=== PATIENT | female | born 1975 | race Caucasian/White ===

== ENCOUNTER 2018-01-02 18:36 | Emergency (ER) | payer BC ==
[~2018-01-02] VITALS: Ht 152.4 cm; Wt 75.3 kg
[~2018-01-02 18:36] MED LIST: BACT800T5 PO; CEPH500T PO; HYDR-3534 PO; XANA0.5T PO; Z.0.NO CURRENT MEDS
[2018-01-02 18:58] VITALS: BP 163/87; PULSE 100; RESP 18; TEMP 98.4; O2SAT 95
[2018-01-02] MEDS ORDERED: HYDR-3366 PO (19:29)
[2018-01-02] MEDS ORDERED: ALPR.5 PO (19:29)
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
[2018-01-02] MEDS ORDERED: DICL75TA PO (20:11)
--- NOTE | 2018-01-02 20:13 | RADRPT ---
EXAM DATE/TIME: 01/02/2018 19:38 [facility] COMPARISON: ANKLE RIGHT LIMITED (AP&LAT), January 02, 2018, 19:38. INDICATIONS : Pain post fall. MEDICAL HISTORY : None. SURGICAL HISTORY : None. ENCOUNTER: Initial ACUITY: 1 day PAIN SCORE: 10/10 LOCATION: Right Foot. FINDINGS: Mild to moderate degenerative changes at the first MTP joint. No fractures are seen. Dorsal soft tiss ue swelling. CONCLUSION: Soft tissue swelling. No obvious fractures. Jake Chew MD on January 02, 2018 at 20:12 Board Certified Radiologist. This report was verified electronically.
--- NOTE | 2018-01-02 20:14 | RADRPT ---
EXAM DATE/TIME: 01/02/2018 19:38 [facility] COMPARISON: FOOT RIGHT COMPLETE ([id number]), January 02, 2018, 19:38. INDICATIONS : Pain post fall. MEDICAL HISTORY : None. SURGICAL HISTORY : None. ENCOUNTER: Initial ACUITY: 1 day PAIN SCORE: 10/10 LOCATION: Right Ankle. FINDINGS: Ankle mortise is approximated. Mild soft tissue swelling laterally. An obvious fracture is not seen. CONCLUSION: Soft tissue swelling. Jake Chew MD on January 02, 2018 at 20:12 Board Certified Radiologist. This report was verified electronically.
== END 2018-01-02 20:29 | disposition home or self-care (01) ==
LOC: PHED 18:36 → PHEFT 20:29
DX: S93.601A Unspecified sprain of right foot, initial encounter (principal); X50.9XXA Other and unspecified overexertion or strenuous movements or postures, initial encounter; Y93.41 Activity, dancing; F41.9 Anxiety disorder, unspecified; F32.9 Major depressive disorder, single episode, unspecified
CPT/HCPCS: 73600; 73630; 99283